=== PATIENT | female | born 1975 | race Caucasian/White ===

== ENCOUNTER 2019-05-01 10:50 | Day surgery (SDC) | payer BC ==
[~2019-05-01] VITALS: Ht 160 cm; Wt 93.4 kg
[2019-05-01 11:31] LABS: HEMATOCRIT 40.5 % (36.0-48.0); HEMOGLOBIN 13.8 g/dL (12-16); MCH 29.7 pg (26.0-34.0); MCHC 34.1 g/dL (31.0-37.0); MCV 87.3 fL (80.0-100.0); MEAN PLATELET VOLUME 10.2 fL (7.4-10.4); RBC 4.64 10x6/uL (4.00-5.40); RDW 13.6 % (11.5-14.5); WBC 5.3 10x3/uL (4.8-10.8)
[2019-05-01 12:02] LABS: CALC OSMOLALITY 282 mosm/kg (275-300); CARBON DIOXIDE 29.3 mmol/L (21.0-32.0); CHLORIDE - SERUM 104 mmol/L (98-107); CREATININE - SERUM 0.8 mg/dL (0.6-1.3); GLUCOSE 92 mg/dL (74-106); POTASSIUM - SERUM 4.3 mmol/L (3.5-5.1); SODIUM 142 mmol/L (136-145); UREA NITROGEN 13 mg/dL (7-18); eGFR NON AFRICAN AMERICAN 83 mL/min (90-120)
[2019-05-01] MEDS ORDERED: BENICAR40 MG PO (12:20)
[2019-05-01] MEDS ORDERED: DEXILANT30 MG PO (12:21)
[2019-05-01] MEDS ORDERED: HYDROCHLOROTH12.5 M1 PO (12:21)
[2019-05-01] MEDS ORDERED: CELEXA40 MG PO (12:21)
[2019-05-01] MEDS ORDERED: HYDROCODONE-A1 UDTA2 PO (12:22)
[2019-05-01 12:24] VITALS: Ht 160 cm; Wt 93.4 kg
--- NOTE | 2019-05-01 13:52 | NUR ---
PREP WITH CHLORAPREP FROM SHOULDER TO FINGERS ON LEFT ARM CIRCUMFERENTIALLY
[2019-05-01] MEDS ORDERED: PERCOCET 10-321 EAC1 PO (14:49)
[2019-05-01] MEDS ORDERED: DURICEF500 MG PO (14:49)
[2019-05-01] MEDS ORDERED: VISTARIL50 MG PO (15:10)
--- NOTE | 2019-05-01 16:16 | NUR ---
1620 RECIEVED A FULL LIQ TRAY. THROAT SORE.
--- NOTE | 2019-05-01 16:17 | NUR ---
1620 PT HAS A PAIN OF 7/10 LEFT ARM
--- NOTE | 2019-05-01 16:55 | NUR ---
1650 PTS HR 132 HX OF ANXIETY DISORDER. ANESTHESIA NOTIFIED 1652 ANESTHESIA AT BEDSIDE TO TALK WITH PT
--- NOTE | 2019-05-01 17:28 | NUR ---
1730 PT RELAXED AND EASY TO ARROUSE. VS STABLE.
--- NOTE | 2019-05-01 18:05 | NUR ---
1755 IV REMOVED ASSISTED WITH GETTING DRESSED. DRESSING CDI. SLING ON WITH FINGERS SLIGHTLY HIGHER THAN ELBOW. OLD NILD BRUISING TO FINGERS ON LEFT HAND. PT DROWSY BUT HR INREASING TO 120S WITH ANXIETY. DENIES PAIN.
--- NOTE | 2019-05-02 07:05 | OP ---
PATIENT NAME: MICHAEL CHONG MEDICAL RECORD: [id number] :75 LOCATION:[facility] ADMISSION DATE: SURGEON: SPENSER MEDEL DO DATE OF OPERATION: 05/01/2019 PROCEDURE PERFORMED: Left humeral shaft open reduction internal fixation. PREOPERATIVE DIAGNOSIS: Closed displaced left humeral shaft fracture. POSTOPERATIVE DIAGNOSIS: Closed displaced left humeral shaft fracture. INDICATIONS: Ms. Chong is a 43-year-old right hand dominant female who fell off her horse when her saddle broke approximately 16 days ago, she was being treated in a Hannah brace, which is certainly appropriate; however, after getting x-rays, the fracture was not growing together at all and in fact had about 2 cm of a gap in between the fracture sites and she did have a larger chest that would prevent her bone from coming together as it levered off of her breasts. The patient was aware of that after I talked to her about it and she said that she wanted it fixed, just tired dealing with the pain and thought it would heal faster. I told her I probably would at least treat her if we did the open reduction and internal fixation. She is aware of the risks including damage to the radial nerve any other nerves in the area, need for further surgery, continued pain, nonunion, malunion. She is okay with those risks and signed a consent. SURGEON: Spenser Medel DO DESCRIPTION OF PROCEDURE: The patient received a block by anesthesia in the preoperative area. She was taken to the operative suite. The patient was then sedated and intubated. She was given 2 grams Ancef preoperatively. The left upper extremity was prepped and draped in sterile fashion. Timeout was performed. Everyone was agreeance as the correct side, site and patient and procedure. The incision was then marked out over the lateral aspect of the biceps on the upper arm. Interval dissection was made down to the biceps. Biceps was taken medial. The brachialis muscle was split as to keep the innervation of the radial nerve as well as the musculocutaneous nerve, then exposing the humerus. Once the fracture was exposed, it did have some callus. This was taken down. Reduction was made. A plate was then put on a [employer] [facility] hybrid compression locking plate with 4-5 cortical screws were used. The plate, once it was in good position, 2 compressing screws were used and the compression technique with the plate slightly bent on opposite sides of the fracture. These were compressed sequentially as to reduce the fracture as it did a very nice job of doing so. The locking screws were then put in, two on each side of the fracture and one proximal screw was removed as it was not quite long enough on the lateral x-ray, it was a 22, a 24 was placed. Once I was completed, x-rays were done of AP and lateral, noting a very nice reduction of the fracture and good placement of the plate and screws. The site was then thoroughly irrigated and closed, first closing some the deep fascia with #1 Vicryl in a simple fashion and then the skin with 2-0 Vicryl inverted interrupted fashion, 4-0 Monocryl ran on the incision and Prineo glue placed on it. She was then dressed with Adaptic, 4 x 4s and ABD and then wrapped with cast padding and Dwayne wrap up to the shoulder. She was awakened and taken to recovery in stable condition. Blood loss was approximately 150 mL. COMPLICATIONS: None. OPERATIVE REPORT [id number] MICHAEL CHONG TRANSINT:[id number] Voice Confirmation ID: [id number] DOCUMENT ID: [id number] SPENSER MEDEL DO at 0705 CC: [id number] DICTATION DATE: 05/01/19 1456 DISTRICT RESOURCE OFFICER: 05/01/19 1601 [facility] 05/01/19 [place] [id number] [place] [id number]
== END 2019-05-01 18:05 | disposition home or self-care (01) ==
LOC: D.OPS 10:50
PROVIDERS: Anesthesiology; ATTEND Orthopaedic Surgery
DX: S42.302A Unspecified fracture of shaft of humerus, left arm, initial encounter for closed fracture (principal); V80.010A Animal-rider injured by fall from or being thrown from horse in noncollision accident, initial encounter; Z01.812 Encounter for preprocedural laboratory examination